=== PATIENT | male | born 1995 | race African-American/Black ===

== ENCOUNTER 2021-05-27 19:33 | Emergency (ER) | payer OTHER ==
[~2021-05-27] VITALS: Ht 182.9 cm; Wt 70.0 kg
[2021-05-27] MEDS ORDERED: DICLOFENAC SODI75 MG PO (20:50)
== END 2021-05-27 21:36 | disposition home or self-care (01) ==
LOC: ED 19:33
DX: S16.1XXA Strain of muscle, fascia and tendon at neck level, initial encounter (principal); V59.9XXA Occupant (driver) (passenger) of pick-up truck or van injured in unspecified traffic accident, initial encounter
CPT/HCPCS: 72125; 99284-25